=== PATIENT | female | born 1995 | race African-American/Black ===

== ENCOUNTER 2017-05-29 11:31 | Emergency (ER) | payer BC ==
[2017-05-29 11:39] VITALS: BP 134/79; PULSE 85; TEMP 98; BMI 24.2
--- NOTE | 2017-05-29 12:11 | PDOC ---
History of Present Illness - General Chief Complaint: Chest Pain Stated Complaint: CHEST PAIN, LT SIDE NUMBNESS Time Seen by Provider: 05/29/17 11:49 History Source: Patient Exam Limitations: No Limitations - History of Present Illness Initial Comments: 05/29/17 12:13 My Chief Complaint: left sided chest pain with tingling of left arm Present illness: Patient is a 21-year-old female with a history of asthma that is triggered by allergies here today complaining of left-sided lower chest pain along the sternal border with tingling of her left upper arm that lasted approximately 10 seconds she was perched in her bed with her left arm flexed holding her upper torso upright as she was typing on her computer. Patient also felt tingling in her little left upper arm. Patient denies any pain in her arm. Patient denied any shortness of breath, cough, or any other symptoms. Patient reports that pain reoccurred while she was in the shower however with less intense and it occurred in triage when she was moving her upper torso and was less intense. Patient denies any pain presently. Pain is reproduced by palpation along the left proximal sternal border and with twisting of the upper torso. Patient denies being on any any oral contraceptives. Patient denies any swelling of her lower extremities. Patient denies palpitations. Mother is with her mother denies that anyone had sudden cardiac at young age and family. Patient traveled from [place] via airplane on 05/25/2017. Patient had EKG here which was normal sinus rhythm.no abnormality noted. Timing/Duration: changing over time (lessening ) Severity: moderate Associated Symptoms: reports: chest pain (left side along sternal border). denies: cough, diaphoresis, fever/chills, headaches, nausea/vomiting, shortness of breath, weakness Past History - Past Medical History Allergies/Adverse Reactions: Allergies Allergy/AdvReac Type Severity Reaction Status Date / Time nut - unspecified Allergy Verified 05/29/17 11:35 shellfish derived Allergy Verified 05/29/17 11:35 Home Medications: Ambulatory Orders NK [No Known Home Medication] 07/01/16 Asthma: Yes - Psycho/Social/Smoking Cessation Hx Anxiety: No Suicidal Ideation: No Smoking History: Never smoked Have you smoked in the past 12 months: No Information on smoking cessation initiated: No Hx Alcohol Use: No Drug/Substance Use Hx: No Substance Use Type: None Review of Systems - Review of Systems Able to Perform ROS?: Yes Constitutional: No: Symptoms Reported HEENTM: No: Symptoms Reported Respiratory: No: Symptoms reported Cardiac (ROS): Yes: Chest Pain (along left sternal border) ABD/GI: No: Symptoms Reported : No: Symptoms Reported Musculoskeletal: No: Symptoms Reported Integumentary: No: Symptoms Reported Neurological: Yes: Tingling (left upper arm none now ) *Physical Exam - Vital Signs Last Vital Signs Temp Pulse Resp BP Pulse Ox 98.0 F 85 18 134/79 100 05/29/17 11:37 05/29/17 11:37 05/29/17 11:37 05/29/17 11:37 05/29/17 11:37 - Physical Exam General Appearance: Yes: Appropriately Dressed Neck: negative: Tender, Lymphadenopathy (R), Lymphadenopathy (L), Rigidity, Tender lateral, Tender midline Respiratory/Chest: positive: Chest Tender (along left proximal sternal border), Lungs Clear, Normal Breath Sounds. negative: Respiratory Distress Cardiovascular: positive: Regular Rhythm, Regular Rate, S1, S2 Gastrointestinal/Abdominal: positive: Normal Bowel Sounds, Soft. negative: Tender, Organomegaly, Distended, Guarding, Rebound, Tenderness, Hepatomegaly, Spleenomegaly Extremity: positive: Normal Capillary Refill, Normal Inspection, Normal Range of Motion. negative: Tender, Swelling Integumentary: positive: Normal Color Neurologic: positive: Alert, Normal Response, Respond to painful stimul (b/l upper arms ), Responsive Heart Score/ECG Review - ECG Impressions Comment:: 05/29/17 13:02 EKG NSR reviewed by Medical Decision Making - Medical Decision Making 05/29/17 12:18 Patient is a 21-year-old female with a history of asthma that is triggered by allergies here today complaining of left-sided lower chest pain along the sternal border with tingling of her left upper arm that lasted approximately 10 seconds she was perched in her bed with her left arm flexed holding her upper torso upright as she was typing on her computer. Patient also felt tingling in her little left upper arm. Patient denies any pain in her arm. Patient denied any shortness of breath, cough, or any other symptoms. Patient reports that pain reoccurred while she was in the shower however with less intense and it occurred in triage when she was moving her upper torso and was less intense. Patient denies any pain presently. Pain is reproduced by palpation along the left proximal sternal border and with twisting of the upper torso. Patient denies being on any any oral contraceptives. Patient denies any swelling of her lower extremities. Patient denies palpitations. Mother is with her mother denies that anyone had sudden cardiac at young age and family. Patient traveled from [place] via airplane on 05/25/2017. Patient had EKG here which was normal sinus rhythm.no abnormality noted. Patient reports that she also had is very anxious most of the time and when she had the chest discomfort initially she was more anxious but patient denied any palpitations. 05/29/17 12:19 costocondritis PLAN EKG reviewed by MD CASTANON URINE HCG NEGATIVE XRAY CHEST PA/LATERAL no acute pathology noted, scoliosis 05/29/17 13:01 *DC/Admit/Observation/Transfer Diagnosis at time of Disposition: Costochondritis, acute - Discharge Dispostion Disposition: HOME Condition at time of disposition: Stable - Referrals Referrals: Alexsander Melendez MD [Primary Care Provider] - Silverio Tracy MD [Staff Physician] - - Patient Instructions Additional Instructions: FOLLOW UP WITH YOUR PRIMARY CARE PROVIDER FOLLOW UP WITH CARDIOLOGY SOON POSSIBLE FOR FURTHER EVALUATION RETURN TO Emergency room if symptoms worsen AVOID LYING ON YOUR BED PERCHED UP ON YOUR ELBOW TO USE THE COMPUTER TAKE IBUPROFEN DIRECTED BY POCKET CLOSER PATIENT VOICED UNDERSTANDING OF DISCHARGE INSTRUCTIONS AND ALL QUESTIONS WERE ANSWERED
--- NOTE | 2017-06-02 11:59 | EKG ---
Test Reason : Blood Pressure : / mmHG Vent. Rate : 072 BPM Atrial Rate : 072 BPM P-R Int : 184 ms QRS Dur : 072 ms QT Int : 372 ms P-R-T Axes : 073 076 058 degrees QTc Int : 407 ms NORMAL SINUS RHYTHM NORMAL ECG NO PREVIOUS ECGS AVAILABLE Confirmed by BRIJESH FUENTES, WILL ([id number]) on 06/02/2017 11:58:37 AM Referred By: Confirmed By:WILL COLEY MD
== END 2017-05-29 13:13 | disposition home or self-care (01) ==
LOC: JERFT 11:31
DX: M94.0 Chondrocostal junction syndrome [Tietze] (principal)
CPT/HCPCS: 71020-TC; 84703; 93005; 93010; 99281-25

== ENCOUNTER 2018-03-25 04:33 | Emergency (ER) | payer BC ==
[2018-03-25] MEDS ORDERED: methylPREDNISolone NA SUCC 125 MG/2 ML VIAL IVPB ONE (04:47)
[2018-03-25] MEDS ORDERED: FAMOTIDINE 20 MG/50 ML IVPB 20 MG in PREMIX 50 IVPB ONE (04:47)
--- NOTE | 2018-03-25 04:47 | PDOC ---
History of Present Illness - General History Source: Patient Exam Limitations: No Limitations - History of Present Illness Initial Comments: 03/25/18 05:33 The patient is a 22 year old female with a significant PMH of asthma and nut allergy who presents to the emergency department with nausea, difficulty breathing, and anxiety beginning prior to arrival s/p nut consumption. The patient states she was eating a sauce but was unaware that it contained nuts. She reports she is aware of her nut allergy. The patient denies any allergies to medications. The patient denies taking any medications for her symptoms. The patient denies chest pain, headache and dizziness. Denies fever, chills, vomit, diarrhea and constipation. Denies dysuria, frequency, urgency and hematuria. Allergies: Nut - unspecified. Shellfish Past surgical history: None reported. Social history: No reported cigarette, alcohol, or drug use. PCP: None reported. <Kash Wooten - Last Filed: 03/25/18 05:33> - General History Source: Patient <Peng Davis - Last Filed: 03/25/18 06:14> - General Chief Complaint: Allergic Reaction Stated Complaint: ALLERGIC REACTION Time Seen by Provider: 03/25/18 04:46 Past History <Kash Wooten - Last Filed: 03/25/18 05:33> - Past Medical History Asthma: Yes - Suicide/Smoking/Psychosocial Hx Smoking History: Never smoked Have you smoked in the past 12 months: No Hx Alcohol Use: No Drug/Substance Use Hx: No Substance Use Type: None <Peng Davis - Last Filed: 03/25/18 06:14> - Past Medical History Allergies/Adverse Reactions: Allergies Allergy/AdvReac Type Severity Reaction Status Date / Time nut - unspecified Allergy Verified 03/25/18 04:43 shellfish derived Allergy Verified 03/25/18 04:43 Home Medications: Ambulatory Orders Diphenhydramine HCl [Benadryl Capsules -] 25 mg PO TID #20 capsule 03/25/18 Famotidine [Pepcid] 40 mg PO DAILY #10 tablet 03/25/18 Loratadine [Claritin] 10 mg PO DAILY #30 tablet 03/25/18 Review of Systems - Review of Systems Able to Perform ROS?: Yes Comments:: 03/25/18 05:33 CONSTITUTIONAL: Absent: fever, chills, diaphoresis, generalized weakness, malaise, loss of appetite HEENT: Absent: rhinorrhea, nasal congestion, throat pain, throat swelling, difficulty swallowing, mouth swelling, ear pain, eye pain, visual Changes CARDIOVASCULAR: Absent: chest pain, syncope, palpitations, irregular heart rate, lightheadedness , peripheral edema RESPIRATORY: (+) Shortness of breath. Absent: cough, dyspnea with exertion, orthopnea, wheezing, stridor, hemoptysis GASTROINTESTINAL: (+) Nausea. Absent: abdominal pain, abdominal distension, vomiting, diarrhea, constipation, melena, hematochezia GENITOURINARY: Absent: dysuria, frequency, urgency, hesitancy, hematuria, flank pain, genital pain MUSCULOSKELETAL: Absent: myalgia, arthralgia, joint swelling SKIN: Absent: rash, itching, pallor HEMATOLOGIC/IMMUNOLOGIC: Absent: easy bleeding, easy bruising, lymphadenopathy, frequent infections ENDOCRINE: Absent: unexplained weight gain, unexplained weight loss, heat intolerance, cold intolerance NEUROLOGIC: Absent: headache, focal weakness or paresthesias, dizziness, unsteady gait, seizure, mental status changes, bladder or bowel incontinence PSYCHIATRIC: (+) Anxious Absent: depression, suicidal or homicidal ideation, hallucinations. <Kash Wooten - Last Filed: 03/25/18 05:33> *Physical Exam - Vital Signs Last Vital Signs Temp Pulse Resp BP Pulse Ox 98.6 F 98 H 20 130/84 100 03/25/18 04:44 03/25/18 04:44 03/25/18 04:44 03/25/18 04:44 03/25/18 04:44 - Physical Exam Comments: 03/25/18 05:33 GENERAL: (+) Slightly anxious. Well developed, well nourished. Awake and alert. No acute distress. HEENT: Normocephalic, atraumatic. PERRLA, EOMI. No conjunctival pallor. Sclera are non- icteric. Moist mucous membranes. Oropharynx is clear. NECK: Supple. Full ROM. No JVD. Carotid pulses 2+ and symmetric, without bruits. No thyromegaly. No lymphadenopathy. CARDIOVASCULAR: Regular rate and rhythm. No murmurs, rubs, or gallops. Distal pulses are 2+ and symmetric. PULMONARY: No retractions, no drooling, no hot potato voice. No evidence of respiratory distress. Lungs clear to auscultation bilaterally. No wheezing, rales or rhonchi. ABDOMINAL: Soft. Non-tender. Non-distended. No rebound or guarding. No organomegaly. Normoactive bowel sounds. MUSCULOSKELETAL Normal range of motion at all joints. No bony deformities or tenderness. No CVA tenderness. EXTREMITIES: No cyanosis. No clubbing. No edema. No calf tenderness. SKIN: Warm and dry. Normal capillary refill. No rashes. No jaundice. NEUROLOGICAL: Alert, awake, appropriate. Cranial nerves 2-12 intact. No deficits to light touch and temperature in face, upper extremities and lower extremities. No motor deficits in the in face, upper extremities and lower extremities. Normoreflexic in the upper and lower extremities. Normal speech. Toes are downgoing bilaterally. Gait is normal without ataxia. PSYCHIATRIC: Cooperative. Good eye contact. Appropriate mood and affect. <Kash Wooten - Last Filed: 03/25/18 05:33> ED Treatment Course - Medications Given in the ED: ED Medications Discontinued Medications Generic Name Dose Route Start Last Admin Trade Name Ernstq PRN Reason Stop Dose Admin Diphenhydramine HCl 25 mg 03/25/18 04:51 03/25/18 04:57 Benadryl Injection - IVPB 03/25/18 04:52 25 mg ONCE ONE Administration Famotidine/Sodium Chloride 20 50 mls @ 100 mls/hr 03/25/18 04:47 03/25/18 04: 57 mg/ Miscellaneous IVPB 03/25/18 05:16 100 mls/hr ONCE ONE Administration Methylprednisolone Sodium Succinate 125 mg 03/25/18 04:47 03/25/18 04:57 Solu-Medrol - IVPB 03/25/18 04:48 125 mg ONCE ONE Administration Ondansetron HCl 4 mg 03/25/18 04:57 03/25/18 05:01 Zofran Injection IVPUSH 03/25/18 04:58 4 mg ONCE STA Administration <Kash Wooten - Last Filed: 03/25/18 05:33> *DC/Admit/Observation/Transfer - Attestations Scribe Attestion: 03/25/18 05:34 Documentation prepared by Kash Wooten, acting as medical staff credentialing coordinator for Peng Davis DO. <Kash Wooten - Last Filed: 03/25/18 05:33> - Discharge Dispostion Admit: No <Peng Davis - Last Filed: 03/25/18 06:14> Diagnosis at time of Disposition: Allergic reaction - Discharge Dispostion Disposition: HOME Condition at time of disposition: Stable - Patient Instructions Printed Discharge Instructions: DI for General Allergic Reactions - Post Discharge Activity Forms/Work/School Notes: Back to Work, Back to School
[2018-03-25 04:48] VITALS: BP 130/84; PULSE 98; TEMP 98.6; BMI 26.5
[2018-03-25] MEDS ORDERED: FAMOTIDINE 20 MG/50 ML IVPB 20 MG/50 ML MG IVPB ONE (04:52)
[2018-03-25] MEDS ORDERED: methylPREDNISolone NA SUCC 125 MG/2 ML VIAL ONE ×2 (04:52)
[2018-03-25] MEDS ORDERED: ONDANSETRON 4 MG/2 ML VIAL IVPUSH STA (04:57)
[2018-03-25] MEDS ORDERED: ONDANSETRON 4 MG/2 ML VIAL ONE (04:58)
== END 2018-03-25 06:19 | disposition home or self-care (01) ==
LOC: JER 04:33
PROC: 3E033GC Introduction of Other Therapeutic Substance into Peripheral Vein, Percutaneous Approach (ICD-10-PCS; principal; 2018-03-25)
DX: T78.40XA Allergy, unspecified, initial encounter (principal); J45.909 Unspecified asthma, uncomplicated
CPT/HCPCS: 99282-25

== ENCOUNTER 2019-07-23 00:07 | Emergency (ER) | payer BC ==
[2019-07-23 00:27] VITALS: BP 134/90; PULSE 94; TEMP 98.1; BMI 25.3
--- NOTE | 2019-07-23 01:09 | PDOC ---
Documentation entered by Jean Marie Garza SCRIBE, acting as scribe for Shama Patrick MD. Shama Patrick MD: This documentation has been prepared by the Greg manzano Elijah, SCRIBE, under my direction and personally reviewed by me in its entirety. I confirm that the documentation accurately reflects all work, treatment, procedures, and medical decision making performed by me. Attending Attestation - Resident Resident Name: Kun Farias - ED Attending Attestation I have performed the following: I have examined & evaluated the patient, The case was reviewed & discussed with the resident, I agree w/resident's findings & plan - HPI HPI: 07/23/19 01:19 Patient is a 23 year old female with a significant past medical history of migraines and asthma who presents to the ED with Chest Pain occurring x2 hours ago. Patient reports that the pain is located in the Left lower Chest wall, describes the pain as tightness, "sore" like working out at the gym, constant, lasting for x20 minutes in duration and notes a tingling in the Left Shoulder. Patient associates diaphoresis with the pain and at this time notes taking deep breaths brings about the pain. Patient notes before her symptoms started she felt acid come up after belching. no ocp use. no prolonged immobilization or travel or h/o clots. Denies trauma, fever, chill. Allergies: Nut, Shellfish Derived. Family Hx: Maternal Uncle Cardiac arrest at age 50. 07/23/19 02:11 07/23/19 02:11 - Physicial Exam PE: 07/23/19 01:19 General: Well appearing, awake and alert, NAD. HEENT: NCAT, PERRL, EOMI, clear conjunctiva, anicteric, moist mucous membranes , clear oropharynx, no oral lesions.. Neck: neck supple, FROM Resp: CTAB, normal and even respirations, no respiratory distress CVS: RRR, no murmurs, 2+ peripheral pulses throughout, no peripheral edema Abdomen: soft, NTND, no rebound or guarding. No CVAT. Back: nontender, normal inspection and ROM MSK: no edema, SANCHEZ x4, ROM intact. No clubbing or cyanosis. normal bulk and tone. Extremities: no calf tenderness Neuro: alert, oriented appropriately; no focal neurologic deficits Skin: warm and well perfused, cap refill <2 sec, normal color - Medical Decision Making 07/23/19 02:10 hpi as documented VS reviewed, wnl. Vital Signs Temp Pulse Resp BP Pulse Ox 98.1 F 94 H 18 134/90 100 07/23/19 00:23 07/23/19 00:23 07/23/19 00:23 07/23/19 00:23 07/23/19 00:23 EKG sinus rhythm CXR clear, no effusion or mass no symptoms currently, so doubt underlying cardiopulmonary pathology PERC neg, so unlikely PE anticipate discharge, likely costochondritis. unlikely cardiac or arrhythmia. 07/23/19 02:11 Heart Score/ECG Review #1 ECG reviewed & interpreted by me at: 00:15 General ECG Interpretation: Sinus Rhythm, Normal Rate, Normal Intervals 07/23/19 01:09 EKG normal sinus rhythm, no interval abnormalities, narrow QRS, ST and T wave segments and morphology normal.
--- NOTE | 2019-07-23 01:24 | PDOC ---
History of Present Illness - General Chief Complaint: Chest Pain Stated Complaint: CHEST DISCOMFORT Time Seen by Provider: 07/23/19 00:53 History Source: Patient Exam Limitations: No Limitations - History of Present Illness Initial Comments: 07/27/19 19:07 23 yo F with a hx of migraines and asthma presents to the ED with chest pain for 2 hours. Onset of pain was while at rest, described as a tightness, lasting for 20 minutes, located in the left lower chest wall, and had a tingling sensation in the left shoulder. Concurrent symptoms include diaphoresis. After the chest pain episode, she has pain onset when she takes deep inspirations. Prior to the onset of pain, she was having acidic taste in her mouth and does have a history of reflux. Denies the following: fever, chills, SOB, nausea, vomiting, abdominal pain, dysuria, hematuria, diarrhea, and hematochezia. Allergies: NKDA Familial hx: maternal uncle [place] at 50. Social: Denies tobacco, alcohol, and substance abuse. Past History - Past Medical History Allergies/Adverse Reactions: Allergies Allergy/AdvReac Type Severity Reaction Status Date / Time nut - unspecified Allergy Verified 07/23/19 00:26 shellfish derived Allergy Verified 07/23/19 00:26 Asthma: Yes COPD: No - Suicide/Smoking/Psychosocial Hx Smoking History: Never smoked Have you smoked in the past 12 months: No Hx Alcohol Use: No Drug/Substance Use Hx: No Substance Use Type: None Review of Systems - Review of Systems Able to Perform ROS?: Yes Is the patient limited Taiwanese proficient: No Constitutional: Yes: Diaphoresis. No: Chills, Fever, Weakness HEENTM: No: Eye Pain, Ear Pain, Nose Pain, Throat Pain, Mouth Pain Respiratory: No: Cough, Shortness of Breath, SOB with Exertion Cardiac (ROS): Yes: Chest Pain. No: Lightheadedness, Palpitations, Syncope, Chest Tightness ABD/GI: No: Constipated, Diarrhea, Nausea, Rectal Bleeding, Vomiting, Tarry Stools : No: Burning, Dysuria, Hematuria, Incontinence Musculoskeletal: No: Back Pain, Joint Pain, Neck Pain Integumentary: No: Bruising, Erythema, Rash Neurological: No: Headache, Numbness, Tingling, Tremors Psychiatric: No: Change in Appetite Endocrine: No: Unexplained Weight Gain Hematologic/Lymphatic: No: Anemia *Physical Exam - Vital Signs Last Vital Signs Temp Pulse Resp BP Pulse Ox 98.1 F 94 H 18 134/90 100 07/23/19 00:07/23/19 00:07/23/19 00:07/23/19 00:07/23/19 00:23 - Physical Exam General Appearance: Yes: Nourished, Appropriately Dressed. No: Apparent Distress, Intoxicated HEENT: positive: EOMI, CELIA, Normal Voice, Symmetrical, Pharynx Normal, Hearing Grossly Normal. negative: Pale Conjunctivae, Scleral Icterus (R), Scleral Icterus (L), Muffled/Hoarse voice, Pharyngeal Erythema, Tonsillar Exudate, Tonsillar Erythema, Nasal Congestion, Rhinorrhea, Sinus Tenderness, Excessive drooling Neck: positive: Trachea midline, Supple. negative: Tender, Lymphadenopathy (R) , Lymphadenopathy (L), Tender lateral, Tender midline Respiratory/Chest: positive: Chest Tender, Lungs Clear, Normal Breath Sounds. negative: Respiratory Distress, Accessory Muscle Use, Crackles, Rales, Rhonchi, Stridor, Wheezing Cardiovascular: positive: Regular Rhythm, Regular Rate, S1, S2. negative: Systolic Murmur Gastrointestinal/Abdominal: positive: Normal Bowel Sounds, Flat, Soft. negative : Tender, Distended, Guarding, Rebound Lymphatic: negative: Adenopathy Musculoskeletal: positive: Normal Inspection. negative: CVA Tenderness, Vertebral Tenderness Extremity: positive: Normal Capillary Refill, Normal Inspection, Normal Range of Motion. negative: Tender Integumentary: positive: Normal Color, Dry, Warm. negative: Cold, Clammy, Swelling Neurologic: positive: foil cutter II-XII NML intact, Fully Oriented, Alert, Normal Mood/ Affect, Normal Response, Motor Strength 5/5. negative: Numbness, Sensory Deficit ED Treatment Course - RADIOLOGY Radiology Studies Ordered: Category Date Time Status CHEST PA & LAT [RAD] Stat Radiology 07/23/19 01:17 Ordered Medical Decision Making - Medical Decision Making 23 yo F with a hx of migraines and asthma presents to the ED with chest pain for 2 hours. Initial vitals; Initial Vital Signs Temp Pulse Resp BP Pulse Ox 98.1 F 94 H 18 134/90 100 07/23/19 00:23 07/23/19 00:07/23/19 00:07/23/19 00:23 07/23/19 00:23 Work up: ddx: ACS vs costochondritis. pain is consistent with costochondritis. PE unlikely given PERC negative. Laboratory Tests 07/23/19 02:20 Urine HCG, Qual Negative EKG was NSR without ST elevation or depressions. noted. the patient was asymptomatic at the time of discharge. she states she will follow up with her PMD within 1 week after discharge. Dispo: Discharge *DC/Admit/Observation/Transfer Diagnosis at time of Disposition: Chest pain - Discharge Dispostion Disposition: HOME Condition at time of disposition: Good Decision to Admit order: No - Referrals Referrals: [facility] [place] [facility] [place] [Provider Group] - Patient Instructions Printed Discharge Instructions: DI for Atypical Chest Pain Additional Instructions: You were seen for chest pain. Your EKG was within normal limits. Please return to the emergency department if you have worsening symptoms or new concerning symptoms. Please follow up with your primary medical doctor within 1 week after discharge. Thank you. - Post Discharge Activity
--- NOTE | 2019-07-23 09:37 | EKG ---
Test Reason : Blood Pressure : / mmHG Vent. Rate : 089 BPM Atrial Rate : 089 BPM P-R Int : 198 ms QRS Dur : 072 ms QT Int : 354 ms P-R-T Axes : 070 075 054 degrees QTc Int : 430 ms NORMAL SINUS RHYTHM NORMAL ECG WHEN COMPARED WITH ECG OF 29-MAY-2017 11:43, NO SIGNIFICANT CHANGE WAS FOUND Confirmed by ANNE WILDE MD ([id number]) on 07/23/2019 9:36:43 AM Referred By: Confirmed By:ANNE WILDE MD
== END 2019-07-23 03:12 | disposition home or self-care (01) ==
LOC: JER 00:07
DX: R07.89 Other chest pain (principal)
CPT/HCPCS: 71046-TC-FY; 84703; 93005; 93010; 99281-25

== ENCOUNTER 2020-07-27 15:51 | Emergency (ER) | payer BC, OTHER ==
[2020-07-27 16:08] VITALS: BP 126/82; PULSE 84; BMI 25.3
--- NOTE | 2020-07-27 16:39 | PDOC ---
History of Present Illness - General Chief Complaint: Pain Stated Complaint: FALL Time Seen by Provider: 07/27/20 16:23 History Source: Patient Exam Limitations: No Limitations - History of Present Illness Initial Comments: 07/27/20 16:33 24-year-old female past medical history of hypothyroid presenting to the ED after slip and fall. Patient states she fell directly on her right knee and braced the fall with her left hand. Patient is complaining of right knee pain worse with ambulation as well as left hand pain worse with flexion. Patient denies hitting her head or loss of consciousness and states the fall was completely mechanical in nature. Did not take any medicine for the pain. Pt otherwise denies: fevers, chills, syncope, lightheadedness, dizziness, headaches, neck pain, chest pain, shortness of breath, palpitations, back pain, abdominal pain, nausea, vomiting, diarrhea, constipation. Past History - Medical History Allergies/Adverse Reactions: Allergies Allergy/AdvReac Type Severity Reaction Status Date / Time nut - unspecified Allergy Verified 07/27/20 16:08 shellfish derived Allergy Verified 07/27/20 16:08 Asthma: Yes COPD: No - Reproductive History Is Patient Now?: No - Psycho-Social/Smoking History Smoking History: Never smoked Have you smoked in the past 12 months: No *Physical Exam - Vital Signs Last Vital Signs Temp Pulse Resp BP Pulse Ox 84 18 126/82 100 07/27/20 16:06 07/27/20 16:06 07/27/20 16:06 07/27/20 16:06 - Physical Exam 07/27/20 16:34 Gen: AAOx 3, no acute distress, comfortable, no signs of respiratory distress HENT: atraumatic, normocephalic with no laceration or contusion. Nasal mucosa without erythema. Oropharynx without erythema or exudates. Mucous membranes moist. EYES: PERRL, EOM intact, conjunctiva pink NECK: supple; trachea midline; no JVD, no lymphadenopathy, or thyromegaly CV: RRR no murmurs, gallops, or rubs. CHEST: CTA b/l no wheezing, rales or rhonchi ABD: +BS/ND. no TTP; soft, no rebound, no guarding EXTREMITY: no cyanosis or erythema. 2+ dorsalis pedis, posterior tibial, and radial pulse. No pedal edema; no calf swelling or tenderness SKIN: no rash, warm and dry, no diaphoresis HEME: no purpura or ecchymosis NEURO: normal speech, CN II-XII intact, sensation intact, normal gait, no cerebellar deficits MS: 5/5 strength in all extremities, FROM intact in all extremities. R Knee: FROM with flexion and extension of the knee, 5/5 muscle strength, sensation intact, neg anterior/posterior drawer sign for ACL/ PCL tear, neg Ulises's test. Swelling and ttp to anterior patella with mild ecchymosis. L Hand: No swelling but ttp to 3rd metatarsal head FROM opposition and OK sign intact <2 sec cap refill sensation intact ED Treatment Course - RADIOLOGY Radiology Studies Ordered: Category Date Time Status HAND- LEFT [RAD] Stat Radiology 07/27/20 16:30 Ordered KNEE 3 POS-RIGHT [RAD] Stat Radiology 07/27/20 16:30 Ordered Medical Decision Making - Medical Decision Making 07/27/20 16:38 24 year old female s/p fall VSS Will obtain XR R knee and L hand Will reasses based on results XR negative for fractures or dislocation Knee wrapped with MANUEL bandage Pt insturcted to [facility] for pain Pt appears well and is safe and stable for discharge with strict return precautions including signs and symptoms requring immediate return to the ED Supportive care instructions explained and given to pt. Reasons to return emergently to ER explained and given. Importance of follow up with PMD and other specialists as indicated stressed to pt. Pt verbalized understanding of instructions. Pt to follow up with PMD in 2 days. Discharge - Discharge Information Problems reviewed: Yes Clinical Impression/Diagnosis: Knee pain, right Qualifiers: Chronicity: acute Qualified Code(s): M25.561 - Pain in right knee Condition: Stable Disposition: HOME - Follow up/Referral - Patient Discharge Instructions Patient Printed Discharge Instructions: DI for Knee Pain - Post Discharge Activity
== END 2020-07-27 16:49 | disposition home or self-care (01) ==
LOC: JERFT 15:51
DX: M25.561 Pain in right knee (principal)
CPT/HCPCS: 73130-TC-LT-FY; 73562-TC-RT-FY; 99284-25

== ENCOUNTER → 2020-08-19 | Day surgery (SDC) | payer OTHER ==
--- OUTSIDE RECORDS SUMMARY | 2020-08-19 12:49 | XMS ---
:1995 Author Organization [facility] Care Team Providers Name Role Phone Neftaly Lopez MD Unavailable Unavailable Neftaly Lopez MD Unavailable Unavailable Neftaly Lopez MD Unavailable Unavailable Neftaly Lopez MD Unavailable Unavailable Neftaly Lopez MD Unavailable Unavailable Neftaly Lopez MD Unavailable Unavailable Neftaly Lopez MD Unavailable Unavailable Neftaly Lopez MD Unavailable Unavailable Neftaly Lopez MD Unavailable Unavailable Neftaly Lopez MD Unavailable Unavailable Neftaly Lopez MD Unavailable Unavailable Neftaly Lopez MD Unavailable Unavailable Neftaly Lopez MD Unavailable Unavailable Neftaly Lopez MD Unavailable Unavailable Neftaly Lopez MD Unavailable Unavailable Neftaly Lopez MD Unavailable Unavailable Neftaly Lopez MD Unavailable Unavailable Neftaly Lopez MD Unavailable Unavailable Neftaly Lopez MD Unavailable Unavailable Neftaly Lopez MD Unavailable Unavailable Neftaly Lopez MD Unavailable Unavailable Neftaly Lopez MD Unavailable Unavailable Neftaly Lopez MD Unavailable Unavailable Re-disclosure Warning The records that you are about to access may contain information from federally- assisted alcohol or drug abuse programs. If such information is present, then the following federally mandated warning applies: This information has been disclosed to you from records protected by federal confidentiality rules (42 CFR part 2). The federal rules prohibit you from making any further disclosure of this information unless further disclosure is expressly permitted by the written consent of the person to whom it pertains or as otherwise permitted by 42 CFR part 2. A general authorization for the release of medical or other information is NOT sufficient for this purpose. The Federal rules restrict any use of the information to criminally investigate or prosecute any alcohol or drug abuse patient.The records that you are about to access may contain highly sensitive health information, the redisclosure of which is protected by Article 27-F of the [facility] Public Health law. If you continue you may haveaccess to information: Regarding HIV / AIDS; Provided by facilities licensed or operated by the [facility] Office of Mental Health; or Provided by the [facility] Office for People With Developmental Disabilities. If such information is present, then the following [facility] mandated warning applies: This information has been disclosed to you from confidential records which are protected by state law. State law prohibits you from making any further disclosure of this information without the specific written consent of the person to whom it pertains, or as otherwise permitted by law. Any unauthorized further disclosure in violation of state law may result in a fine or care home sentence or both. A general authorization for the release of medical or other information is NOT sufficient authorization for further disclosure. Allergies and Adverse Reactions Type Description Substance Reaction Status Data Source(s ) Allergy to No Known Allergies No known [facility] substance allergies ([facility] (situation) Medicine and Infectious Disease) Encounters Encounter Providers Location Date Indications Data Source(s ) Lab results<td Attender: [facility] Herpes Simpl ex [facility] ID="encounterDuane Lopez MD MEDICINE & 9 ([facility] peDescriptionID INFECTIOUS 10:25:00 [place] Medici ne and 0">Lab DISEASE AM EST - Infectious results</td><td Disease) >Neftaly Gillis MD</td><td>METR 11:03:00 [place]TH[place] AM EST MEDICINE & INFECTIOUS DISEASE</td><td >11/13/2019</td ><td><content ID="encounterDi agnosisID0-0">H erpes Simplex</conten t></td> Herpes Simplex Outpatient<td Attender: [facility] 2019 Hepatitis, [facility] ID="encounterTypeDescriptionID0">Annual [facility] MEDICINE & 03:4 8:00 PM C Virus ([facility] Physical</td><td>Neftaly Lopez MD INFECTIOUS EST - [place] Medicine </td><td>[facility] MEDICINE & DISEASE 9 and Infectious INFECTIOUS 05:09:00 PM Disease) DISEASE</td><td>2019</td><td><content EST ID="encounterDiagnosisID0-0">Hepatitis, C Virus</content></td> Hepatitis, C Virus Medications Medication Brand Start Product Dose Route Administrative Pharmacy [facility] Indications Reaction Description Data Name Date Form Instructions Instructions Source(s) No drug active No [facility] Medications or Medications ( [place] Taken medica Taken [facility] Medicine and Infectious Disease) No drug active No [facility] Medications or Medications ( [place] Taken medica Taken [facility] Medicine and Infectious Disease) Insurance Providers Payer name Policy type / Policy ID Covered Covered constitution party's Policy Plan Coverage type constitution party ID relationship to [employer] MEDICAID [id number] SP [id number] [facility] [place] Individual 0 Self 0 Behavioral Policy Health [facility] [place] Other 0 Self 0 Behavioral Health PPO [id number] SP [id number] Problems, Conditions, and Diagnoses Code Display Name Description Problem Type Effective Dates Data Source(s) [id number] Herpes simplex Herpes Simplex Problem 11/13/2019 [place] A[facility] (disorder) 12:00:00 AM EST ([facility] Medicine and Infectious Disease) Surgeries/Procedures Procedure Description Date Indications Data Source(s) No reported medical No reported medical 11/05/2019 [place] history history 12:00:00 AM ([facility] Medicine and Infectious Dise ase) No surgical / No surgical / 11/05/2019 [facility] procedural history procedural history 12:00:00 AM ([facility] Medicine and Infectious Dise ase) Clinical summary 2019 [facility] provided to patient 12:00:00 AM ([facility] EST - Medicine and 2019 Infectious Dise ase) 12:00:00 AM EST Results ID Date Data Source [id number] 2019 06:21:00 PM EST [facility] ([facility] Medicine and Infectious Disease) Name Value Range Interpretation Description Data Sup porting Code Source(s) Document(s ) HEPATITIS C NEGATIVE HEPATITIS C [facility] ANTIBODY ANTIBODY ([facility] Medicine and Infectious Disease) ID Date Data Source [id number] 2019 06:21:00 PM EST [facility] ([facility] Medicine and Infectious Disease) Name Value Range Interpretation Description Data Sup porting Code Source(s) Document(s ) HIV-1/HIV-2 Nonreactive HIV-1/HIV-2 [facility] Ag/Abs Ag/Abs ([facility] Medicine and Infectious Disease) HIV See Note HIV [facility] INTERPRETATION INTERPRETATION ([facility] Medicine and Infectious Disease) Note: Negative for HIV-1 antigen and HIV -1/HIV-2 antibodies.No laboratory evidence of HIV infection.Does not exclude the possi bility of exposure to or infection withHIV-1 and/or HIV-2 that are below the limit of detection of thisassay. ID Date Data Source [id number] 2019 06:21:00 PM EST [facility] ([facility] Medicine and Infectious Disease) Name Value Range Interpretation Description Data Sup porting Code Source(s) Document(s ) HSV II 6.35 Above high normal HSV II [facility] Glycoprotein G INDEX Glycoprotein G ([facility] ta Ab, IgG Ab, IgG n [facility] and Infectious Disease) Note: This assay utilizes type-specific glycoprotein G2 for the detection ofHSV- 2 IgG as recommended by CDC. Positive results may indicate acurrent or past HSV infection. The performance characteristics of theas say have not been established for pediatric populations, immunocomprised patients, o r screening.INDEX VALUES:<=0.90 NEGATIVE No antibodies to Herpes II IgG were detected. A negative result generally indicates that the patient has not been infected. If clinical exposure to HSV is suspected despite a negativ e result, a second sample should be collected no less than 4-6 weeks later.0.91-1.09 EQUIVOCAL A second sample should be collected no less than 4-6 weeks later when the result is repeatedly equivocal.>1.09 POSITIVE Presumptive for presence of antibodies to Herpes II IgG. The results of this assay are not by themselves diagnostic, but should be determi mikal in conjunction with clinical findings and other diagnostic procedures as well as in association with medical judgment. HSV I Glycoprotein G 0.21 INDEX HSV I Glycoprotein G [facility] ([facility] [facility], IgG Ab, IgG [facility] and Infectious Disease) Note: This assay utilizes type-specific glycoprotein G1 for the detection ofHSV- 1 IgG as recommended by CDC. Positive results may indicate acurrent or past HSV infection. The performance characteristics ofthe as say have not been established for pediatric populations,immunocompromised patients, or screening.INDEX VALUES:<=0.90 NEGATIVE No antibodies to Herpes I I gG were detected. A negative result generally indicates that the patient has not been infected. If clinical exposure to HSV is suspected despite a negativ e result, a second sample should be collected no less than 4-6 weeks later.0.91-1.09 EQUIVOCAL A second sample should be collected no less than 4-6 weeks later when the result is rep eatedly equivocal.>1.09 POSITIVE Presumptive for presence of antibodies t o Herpes I IgG. The results of this assay are not by themselves diagnostic, but should be deter mined in conjunction with clinical findings and other diag nostic procedures as well as in association with medical judg ment. ID Date Data Source [id number] 2019 06:21:00 PM EST [facility] ([facility] Medicine and Infectious Disease) Name Value Range Interpretation Description Data Source(s ) Supporting Code Document(s ) N.GONORR NEGATIVE N.GONORRHOEAE,A [facility] HOEAE,AM MPLIFIED,UR ([facility] UR and Infectious Disease) Note: This assay is not intende d for the evaluation of suspected sexual abuse or for other medico-legal i ndications. Positive results in low prevalence populations should be interpreted carefully with the understanding that the likelihoo d of a false positive may be higher than a true positive. CHLAMYDIA NEGATIVE CHLAMYDIA [facility] TRACHOMATIS,AMP,UR TRACHOMATIS,AMP,UR ([facility] [place] Medicine and Infectious Disease) Note: This assay is not intende d for the evaluation of suspected sexual abuse or for other medico-legal i ndications. Positive results in low prevalence populations should be interpreted carefully with the understanding that the likelihoo d of a false positive may be higher than a true positive. Trichomonas NEGATIVE Trichomonas [facility] vaginalis,amp,ur vaginalis,amp,ur ([facility] Medicine and Infectious Disease) Note: Positive results in low p revalence populations should be interpreted carefully with the understan ding that the likelihood of a false positive may be higher than a true positive. Procedure Social History Code Duration Value Status Description Data Source(s ) Smoking 2019 Never smoked completed Never smoked [facility] 03:45:00 PM EST tobacco (finding) tobacco (find ing) ([facility] Medicine and Infectious Disease) Smoking Unknown if ever completed Unknown if ever ROBRETA HERNANDEZ smoked smoked ([facility] Medicine and Infectious Disease) Assertion Full-time completed Full-time [facility] employment employment ([facility] (finding) (finding) Medicine and Infectious Disease) Assertion Single person completed Single person [facility] (finding) (finding) ([facility] Medicine and Infectious Disease) Assertion Finding relating completed Finding relating GR EENWAY to drug misuse to drug misuse (Jazmine corona [place] behavior behavior Medicine and (finding) (finding) Infectious Disease) Assertion Tobacco user completed Tobacco user [facility] (finding) (finding) ([facility] Medicine and Infectious Disease) Assertion Social drinker completed Social drinker [facility] (finding) (finding) ([facility] Medicine and Infectious Disease)
--- NOTE | 2020-08-21 18:56 | PATH ---
Surgical Pathology Report Patient Name: ZHANG BOYD Med. Rec. #: [id number] /Age/Gender: 1995 (Age: 24) / F Account: [id number] Location: RADIOLOGY [facility] Taken: 08/19/2020 Received: 08/19/2020 Reported: 08/21/2020 Physicians: Aminah Urbina Specimen(s) Received LEFT BREAST 1-2:00 ULTRASOUD GUIDED CORE BIOPSY Clinical History Palpable mass Ultrasound findings: Probably benign 1.8 cm solid mass Final Diagnosis BREAST, LEFT, 1-2:00, ULTRASOUND GUIDED CORE BIOPSY: FIBROADENOMA. Electronically Signed Xiao Butt M.D. Gross Description Received in formalin labeled "left 1-2:00," are 3 rubi-yellow, cylindrical portions of fibroadipose tissue ranging from 0.9-1.1 cm in length and averaging 0.1 cm in diameter. The specimens are submitted in toto in one cassette. Time to formalin fixation: Less than one minute Total formalin fixation time: Approximately 28 hours. /08/20/2020 [facility]08/20/2020
== END | disposition home or self-care (01) ==
LOC: JRADUS-SUR 11:54
PROVIDERS: ATTEND Physician Assistant
PROC: 0H9U3ZX Drainage of Left Breast, Percutaneous Approach, Diagnostic (ICD-10-PCS; principal; 2020-08-19)
DX: D24.2 Benign neoplasm of left breast (principal)
CPT/HCPCS: 19083; 87899; 88305-TC; A4648

== ENCOUNTER 2021-05-09 12:03 | Emergency (ER) | payer OTHER ==
[2021-05-09 12:46] VITALS: BP 123/79; PULSE 92; TEMP 98; BMI 26.2
== END 2021-05-09 14:03 | disposition home or self-care (01) ==
LOC: JERFT 12:03
DX: S39.012A Strain of muscle, fascia and tendon of lower back, initial encounter (principal); S16.1XXA Strain of muscle, fascia and tendon at neck level, initial encounter
CPT/HCPCS: 99281-25

== ENCOUNTER → 2022-02-25 | Day surgery (SDC) | payer BC, OTHER | END | disposition home or self-care (01) | LOC: JRADUS 11:57 → JRADUS-SUR 11:57 | PROVIDERS: ATTEND Physician Assistant Surgical | PROC: 0H9V3ZX Drainage of Bilateral Breast, Percutaneous Approach, Diagnostic (ICD-10-PCS; principal; 2022-02-25) | DX: D24.1 Benign neoplasm of right breast (principal); N64.89 Other specified disorders of breast | CPT/HCPCS: 19083; 19084; 87899; 88305-TC; A4648 ==